=== PATIENT | male | born 1985 | race American Indian/Alaskan Native ===

== ENCOUNTER 2019-01-02 23:01 | Emergency (ER) | payer OTHER ==
--- NOTE | 2019-01-02 23:44 | EDM.PDOC ---
ED HPI GENERAL MEDICAL PROBLEM - General Chief Complaint: Upper Extremity Injury/Pain Stated Complaint: LEFT HAND INJURY Time Seen by Provider: 01/02/19 23:05 Source of Information: Reports: Patient History Limitations: Reports: No Limitations - History of Present Illness INITIAL COMMENTS - FREE TEXT/NARRATIVE: The patient presents with an amputation to the tip of his left index finger. He [place] the [place] and got his finger pinched between a nut and a heavy piece of metal. He is right handed and he thinks his tetanus is up to date. He has no medical problems. He last had some sips of coffee about 3 1/2 hours ago. Onset: Sudden Duration: Minutes: Location: Reports: Upper Extremity, Left (index finger) Quality: Reports: Sharp Severity: Moderate Improves with: Reports: Immobilization Worsens with: Reports: Movement Context: Reports: Trauma (amputated the tip of his finger) Associated Symptoms: Reports: No Other Symptoms Left Finger-Index Pain Score (Numeric/FACES): 2 - Related Data Allergies Allergy/AdvReac Type Severity Reaction Status Date / Time No Known Allergies Allergy Verified 01/02/19 23:07 Home Meds: Home Meds Cephalexin [Keflex] 500 mg PO QID #40 capsule 01/02/19 [Rx] Ibuprofen 400 mg PO ONCALL PRN 01/02/19 [History] Past Medical History - Past Health History Medical/Surgical History: Denies Medical/Surgical History Respiratory History: Reports: Asthma Social & Family History - Tobacco Use Smoking Status *Q: Former Smoker Used Tobacco, but Quit: Yes Month/Year Tobacco Last Used: 2003 - Alcohol Use Days Per Week of Alcohol Use: 4 Number of Drinks Per Day: 3 Total Drinks Per Week: 12 - Recreational Drug Use Recreational Drug Use: No Review of Systems - Review of Systems Review Of Systems: See Below Constitutional: Reports: No Symptoms Eyes: Reports: No Symptoms Ears: Reports: No Symptoms Nose: Reports: No Symptoms Mouth/Throat: Reports: No Symptoms Respiratory: Reports: No Symptoms Cardiovascular: Reports: No Symptoms GI/Abdominal: Reports: No Symptoms Genitourinary: Reports: No Symptoms Musculoskeletal: Reports: Other (Amputation to the tip of the left index finger) ED EXAM, GENERAL - Physical Exam Exam: See Below Exam Limited By: No Limitations General Appearance: Alert, No Apparent Distress Ears: Normal External Exam Nose: Normal Inspection Head: Atraumatic, Normocephalic Neck: Normal Inspection Respiratory/Chest: No Respiratory Distress, Lungs Clear, Normal Breath Sounds Cardiovascular: Regular Rate, Rhythm, No Edema, No Murmur GI/Abdominal: Soft, Non-Tender, No Organomegaly, No Mass Back Exam: Normal Inspection Extremities: Other (amputation of the tip of the left index finger just below the nail bed) Course - Vital Signs Last Recorded V/S: Last Vital Signs Temp 98.5 F 01/02/19 23:08 Pulse 93 01/02/19 23:08 Resp 16 01/02/19 23:08 BP 153/81 H 01/02/19 23:08 Pulse Ox 98 01/02/19 23:08 - Orders/Labs/Meds Orders: Active Orders 24 hr Category Date Time Status Fingers Second Digit Lt F1 [CR] Stat Exams 01/02/19 23:17 Ordered cefTRIAXone [Rocephin] 1 gm Med 01/02/19 23:45 Active Lidocaine 1% [Xylocaine 1%] 2.1 ml IM Q24H Medication Orders Ceftriaxone Sodium 1 gm/ (Lidocaine HCl 2.1 ml) 0 gm IM Q24H JONATHAN Meds: Medications Generic Name Dose Route Start Last Admin Trade Name Freq PRN Reason Stop Dose Admin Ceftriaxone Sodium 1 gm/ 0 gm 01/02/19 23:45 Lidocaine HCl 2.1 ml IM Q24H JONATHAN - Re-Assessments/Exams Free Text/Narrative Re-Assessment/Exam: 01/02/19 23:43 I ordered an x-ray. 01/02/19 23:46 The x-ray shows that 1/2 of the distal phalynx is missing. I called Dr Villegas and he wanted a wet dressing on and he will see the patient tomorrow at 8:30am in his clinic and he will take him to surgery later in the morning. I will give him a shot of rocephin and a prescription for keflex. Departure - Departure Time of Disposition: 23:55 Disposition: Home, Self-Care 01 Condition: Good Clinical Impression: Traumatic amputation of tip of finger of left hand - Discharge Information *PRESCRIPTION DRUG MONITORING PROGRAM REVIEWED*: Not Applicable *COPY OF PRESCRIPTION DRUG MONITORING REPORT IN PATIENT SRINIVASAN: Not Applicable Prescriptions: Cephalexin [Keflex] 500 mg PO QID #40 capsule Referrals: PCP,None [Primary Care Provider] - Daniel Villegas MD [Physician] - 1 Day Forms: ED Department Discharge Additional Instructions: Keep your finger in the dressing. Do not eat or drink after 1am this morning. Please return to Dr Villegas's office tomorrow morning at 8:30 am [place]. He should do the surgery after that some time. Take tylenol or motrin for pain. I gave you a prescription for keflex. You can wait to get the filled tomorrow. - My Orders Last 24 Hours: My Active Orders 01/02/19 23:17 Fingers Second Digit Lt F1 [CR] Stat 01/02/19 23:45 cefTRIAXone [Rocephin] 1 gm Lidocaine 1% [Xylocaine 1%] 2.1 ml IM Q24H - Assessment/Plan Last 24 Hours: My Active Orders 01/02/19 23:17 Fingers Second Digit Lt F1 [CR] Stat 01/02/19 23:45 cefTRIAXone [Rocephin] 1 gm Lidocaine 1% [Xylocaine 1%] 2.1 ml IM Q24H
[2019-01-02] MEDS ORDERED: cefTRIAXone 1 GM, Lidocaine 1% 2.1 ML IM SCH ×2 (23:45)
[2019-01-03] MEDS ORDERED: Diphtheria,Pertussis(Acell),Tetanus Vaccine 0.5 ML Syringe IM ONE (00:08)
--- NOTE | 2019-01-03 09:00 | CR ---
Left second finger: Three views of the left second finger were obtained. Comparison: No previous finger or hand exam. Soft tissue and bony amputation are seen within the distal left second finger. No proximal abnormality is seen. Impression: 1. Soft tissue and bony amputation within the distal left second finger. Diagnostic code #3
== END 2019-01-03 00:27 | disposition home or self-care (01) ==
LOC: JD.ED 23:01
DX: S68.611A Complete traumatic transphalangeal amputation of left index finger, initial encounter (principal); Z23 Encounter for immunization; Z87.891 Personal history of nicotine dependence; W23.1XXA Caught, crushed, jammed, or pinched between stationary objects, initial encounter; Y99.0 Civilian activity done for income or pay
CPT/HCPCS: 73140; 90471; 90700; 96372; 99283; J0696; J2001

== ENCOUNTER 2019-01-03 09:49 | Day surgery (SDC) | payer OTHER ==
[2019-01-03] MEDS ORDERED: Lidocaine 1% 30 ML SDV ONE (09:52)
[2019-01-03] MEDS ORDERED: Bupivacaine 0.25% 30 ML SDV ONE (09:52)
[2019-01-03] MEDS ORDERED: Sodium Chloride 0.9% 10 ML Syringe FLUSH PRN (10:00)
[2019-01-03] MEDS ORDERED: Lactated Ringers 1,000 ML IV SCH (10:00)
[2019-01-03] MEDS ORDERED: Lidocaine 1%/Sod Bicarbonate in NS 8.4% 1 ML Syringe IDERM PRN (10:00)
[2019-01-03] MEDS ORDERED: Ondansetron 4 MG/2 ML SDV ONE (10:41)
[2019-01-03] MEDS ORDERED: fentaNYL 250 MCG/5 ML SDV ONE (10:42)
[2019-01-03] MEDS ORDERED: ceFAZolin 1 GM Vial ONE (10:42)
[2019-01-03] MEDS ORDERED: Propofol 200 MG/20 ML SDV ONE ×2 (10:42→11:05)
[2019-01-03] MEDS ORDERED: Ketorolac 30 MG/ML SDV ONE (10:42)
[2019-01-03] MEDS ORDERED: Midazolam 1 MG/ML 2 ML SDV ONE (10:42)
--- NOTE | 2019-01-03 11:35 | PCM.PREANE ---
Preanesthetic Assessment - Anesthesia/Transfusion/Family Hx Anesthesia History: Prior Anesthesia Without Reaction Family History of Anesthesia Reaction: No Transfusion History: No Prior Transfusion(s) - Review of Systems General: No Symptoms Pulmonary: Cough Cardiovascular: No Symptoms Gastrointestinal: No Symptoms Neurological: Tingling (left finger) Other: Reports: None - Physical Assessment NPO Status Date: 01/03/19 NPO Status Time: 04:00 Pulse: 71 O2 Sat by Pulse Oximetry: 94 Respiratory Rate: 16 Blood Pressure: 142/72 Temperature: 36.3 C Vital Signs: Last Vital Signs Temp 36.3 C 01/03/19 10:00 Pulse 71 01/03/19 10:00 Resp 16 01/03/19 10:00 BP 142/72 H 01/03/19 10:00 Pulse Ox 94 L 01/03/19 10:00 Height: 1.8 m Weight: 78.471 kg ASA Class: 1 Mental Status: Alert & Oriented x3 Airway Class: Mallampati = 1 Dentition: Reports: Normal Dentition, Windber(s) Thyro-Mental Finger Breadths: 3 Mouth Opening Finger Breadths: 3 ROM/Head Extension: Full Lungs: Clear to Auscultation, Normal Respiratory Effort Cardiovascular: Regular Rate, Regular Rhythm, No Murmurs - Lab Values: Laboratory Last Values MRSA (PCR) Negative 01/03/19 09:58 - Allergies Allergies/Adverse Reactions: Allergies Allergy/AdvReac Type Severity Reaction Status Date / Time No Known Allergies Allergy Verified 01/02/19 23:07 - Blood Blood Available: No Product(s) Available: None - Anesthesia Plan Pre-Op Medication Ordered: None - Acknowledgements Anesthesia Type Planned: MAC Pt an Appropriate Candidate for the Planned Anesthesia: Yes Alternatives and Risks of Anesthesia Discussed w Pt/Guardian: Yes Pt/Guardian Understands and Agrees with Anesthesia Plan: Yes PreAnesthesia Questionnaire - Past Health History Medical/Surgical History: Denies Medical/Surgical History Respiratory History: Reports: Asthma - SUBSTANCE USE Smoking Status *Q: Never Smoker Recreational Drug Use History: No - HOME MEDS Home Medications: Home Meds Cephalexin [Keflex] 500 mg PO QID #40 capsule 01/02/19 [Rx] Ibuprofen 400 mg PO ONCALL PRN 01/02/19 [History] - CURRENT (IN HOUSE) MEDS Current Meds: Current Medications Lactated Ringer's (Ringers, Lactated) 1,000 mls @ 125 mls/hr IV ASDIRECTED JONATHAN Stop: 01/03/19 23:00 Last Admin: 01/03/19 10:15 Dose: 125 mls/hr Lidocaine/Sodium Bicarbonate (Buffered Lidocaine 1% In Ns 8.4%) 0.25 ml IDERM ONETIME PRN PRN Reason: Prior to IV Start Stop: 01/03/19 18:00 Last Admin: 01/03/19 10:15 Dose: 0.25 ml Sodium Chloride (Saline Flush) 10 ml FLUSH ASDIRECTED PRN PRN Reason: Keep Vein Open Stop: 01/03/19 18:00 Discontinued Medications Bupivacaine HCl (Marcaine 0.25%) Confirm Administered Dose 30 ml .ROUTE .STK- MED ONE Stop: 01/03/19 09:53 Cefazolin Sodium (Ancef) Confirm Administered Dose 2 gm .ROUTE .STK-MED ONE Stop: 01/03/19 10:43 Fentanyl (Sublimaze) Confirm Administered Dose 250 mcg .ROUTE .STK-MED ONE Stop: 01/03/19 10:43 Ketorolac Tromethamine (Toradol) Confirm Administered Dose 30 mg .ROUTE .STK- MED ONE Stop: 01/03/19 10:43 Lidocaine HCl (Xylocaine-Mpf 1%) Confirm Administered Dose 30 ml .ROUTE .STK- MED ONE Stop: 01/03/19 09:53 Midazolam HCl (Versed 1 Mg/Ml) Confirm Administered Dose 2 mg .ROUTE .STK-MED ONE Stop: 01/03/19 10:43 Ondansetron HCl (Zofran) Confirm Administered Dose 4 mg .ROUTE .STK-MED ONE Stop: 01/03/19 10:42 Propofol (Diprivan 20 Ml) Confirm Administered Dose 200 mg .ROUTE .STK-MED ONE Stop: 01/03/19 10:43 Propofol (Diprivan 20 Ml) Confirm Administered Dose 200 mg .ROUTE .STK-MED ONE Stop: 01/03/19 11:06
--- NOTE | 2019-01-09 10:55 | PCM.OPNOTE ---
- General Post-Op/Procedure Note Date of Surgery/Procedure: 01/03/19 Operative Procedure(s): revision amputation of left index finger Pre Op Diagnosis: traumatic amputation of left index finger Post-Op Diagnosis: Same Anesthesia Technique: Local, MAC Primary Surgeon: Daniel Villegas Anesthesia Provider: Kennedy Porter EBDennis in mLs: 10 Complications: None Condition: Good
--- NOTE | 2019-01-09 11:29 | OR ---
DATE OF OPERATION: 01/03/2019 SURGEON: Daniel Villegas MD OPERATION PERFORMED: Revision amputation of the left index finger. PREOPERATIVE DIAGNOSIS: Traumatic amputation of the left index finger. POSTOPERATIVE DIAGNOSIS: Traumatic amputation of the left index finger. ANESTHESIA: Local MAC. ANESTHESIA PROVIDER: Kennedy Porter CRNA. ESTIMATED BLOOD LOSS: 10 mL. COMPLICATIONS: None. CONDITION: Stable. DESCRIPTION OF PROCEDURE: The patient was identified in the preop holding area. Proper site was marked and identified by the surgeon. The patient was taken back to the operating theater where after adequate anesthesia, the patient's left upper extremity was sterilely prepped and draped in the usual sterile fashion. OR time-out was performed. The patient received 2 g IV Ancef. At this time, it was found that the patient would need amputation through the DIP joint, secondary to there being not adequate soft tissue for closure over the top of the bony prominence of the remaining DIP. At this time, 3 L normal saline was irrigated through the traumatic amputation site and then resection of the distal phalanx was done through the DIP joint. At this time, it was found to have adequate coverage, and 4-0 nylon suture was used for closure of the stump over the distal end of the middle phalanx. He was found to have good adequate closure with no bony prominences and no exposed bone. At this time, sterile soft dressing was applied, and the patient was sent to the PACU in stable condition. MMODAL /[id number]
== END 2019-01-03 12:37 | disposition home or self-care (01) ==
LOC: JD.SDS 09:49
PROVIDERS: ATTEND Orthopaedic Surgery
DX: S68.611A Complete traumatic transphalangeal amputation of left index finger, initial encounter (principal); Z87.891 Personal history of nicotine dependence
CPT/HCPCS: 26951; 87641; J0690; J1885; J2001; J2250; J2405; J2704; J3010; J3490; J7120; 01830